=== PATIENT | male | born 1950 | race Caucasian/White ===

== ENCOUNTER 2016-08-06 16:25 | Emergency (ER) | payer OTHER ==
[~2016-08-06] VITALS: Ht 175.3 cm; Wt 106.8 kg
[2016-08-06 16:27] VITALS: BP 160/96; PULSE 96; RESP 20; O2SAT 94
[2016-08-06 17:28] LABS: APPEARANCE,URINE CLEAR (CLEAR,HAZY); COLOR,URINE YELLOW (YELLOW)
[2016-08-06 17:29] LABS: OCCULT BLOOD,URINE TRACE (NEGATIVE); PH,URINE 5.5 (5.0-8.0); UROBILINOGEN,URINE NORMAL (NORMAL)
[2016-08-06] MEDS ORDERED: _HYDROcodone/APAP 5-325 mg Tablet PO PRN (18:15)
[2016-08-06] MEDS ORDERED: _Ondansetron ODT 4 mg Tablet PO PRN (18:15)
--- NOTE | 2016-08-06 18:17 | ED.REPORT ---
HPI-Back Pain 40 and Over Date of Service Aug 06, 2016 ED Provider: Memo Hanson MD A 65 year old male with a history of hypertension and recent renal lithiasis presents to the ED complaining of right flank that began 2 days ago. Patient was diagnosed with renal colic in 03/2016 and reports similar symptoms today. Associated symptoms include nausea, vomiting and diaphoresis during the episodes of pain. His previous stones presented with intermittent pain and emesis but his current symptoms have been constant since onset 2 days ago. He denies any pain at this time and rates his worst pain as a 10/10. Patient currently takes Lisinopril and amlodipine. He denies any fever or chills. Nursing Notes Stated Complaint: RIGHT LOWER BACK PAIN Chief Complaint: Back Pain or Injury Nursing Notes Reviewed: Yes Allergies: Coded Allergies: No Known Allergies (Unverified , 08/06/16) Scheduled Tamsulosin (Flomax) 0.4 Mg Capsule 0.4 MG PO DAILY Scheduled PRN Hydrocodone-Acetaminophen 5-325 mg (Hydrocodone-Acetaminophen 5-325 mg) 1 Each Tablet 1-2 TABLET PO Q4H PRN PRN For Pain General Time Seen by MD: 18:05 Chief Complaint Flank pain right Hx Obtained From: Patient Arrived By: Walk-in Sudden in Onset?: No Onset Occurred: 2 days ago Symptom Duration: Constant Location: : Flank right Quality: Painful Radiation: : Does not radiate Severity: Current: No pain currently Severity: Maximum: Pain level 10 out of 10 Associated with: Reports: Nausea, Vomiting, Denies: Dysuria Pertinent Negative: Pt denies other symptoms Recent Healthcare: No recent doctor visit, No recent hospitalization Past Medical History Past Medical History Hypertension Renal colic Past Surgical History None reported. Smoking History Unknown if Ever Smoker Social History Other Social History: Good social support, , From out of town Ambulatory Status Independent Review of Systems Constitutional: Denies: Chills, Fever GI: Reports: Nausea, Vomiting Male: Reports Flank pain (R) Complete sys rev & neg: except as marked. Skin: Reports Diaphoresis Physical Exam Initial Vital Signs Vital Signs (First) Date Time Temp Pulse Resp B/P Pulse Ox O2 Delivery O2 Flow Rate FiO2 08/06/16 16:27 37. 96 20 160/96 94 Room Air Initial VS: Reviewed Head / Eyes: Atraumatic, Normocephalic, PERRL Neck: Supple, Non-tender, Full range of motion Extremities: Vascular intact, Neuro intact, No swelling, No tenderness Psychiatric: Mood/affect normal, Behavior normal, Normal thought content General/Constitutional: Awake, Alert, No acute distress, Well appearing, Well developed Respiratory / Chest: Atraumatic, Breath sounds NL, Breath sounds = bilat, No respiratory distress Cardiovascular: Heart rate NL, Regular rhythm, Heart sounds NL Abdomen: Atraumatic, Soft, Non-tender, No guarding, No rebound Back: Atraumatic, Inspection NL, Non-tender Neurologic: Oriented X3, Speech NL, No motor deficits, No sensory deficits Skin: Atraumatic, Color NL, No rash, Warm, Dry Interpretation & Diagnostics Lab Results Interpretation Result Diagram: 08/06/16 1720 Test 08/06/16 17:10 08/06/16 17:20 Urine Color Yellow (YELLOW) Urine Appearance Clear (CLEAR,HAZY) Urine pH 5.5 (5.0-8.0) Urine Specific [place] 1.025 (1.003-1.035) Urine Protein Tracemg/dL (NEG,TRACE) Urine Glucose (UA) Negativemg/dL (NEGATIVE) Urine Ketones Tracemg/dL (NEGATIVE) Urine Occult Blood Trace (NEGATIVE) Urine Nitrite Negative (NEGATIVE) Urine Bilirubin Negative (NEGATIVE) Urine Urobilinogen Normalmg/dL (NORMAL) Urine Leukocyte Esterase Negative (NEGATIVE) Urine RBC 0-2/hpf (0-2) Urine WBC 0-5/hpf (0-5) Urine Epithelial Cells None/hpf (NONE-MOD) Urine Crystals None seen (NONE SEEN) Urine Bacteria Few/hpf (NONE-FEW) Urine Hyaline Casts None/lpf (NONE) Urine Granular Casts None seen (NONE SEEN) Urine Waxy Casts None seen (NONE SEEN) Urine Red Blood Cell Casts None seen (NONE SEEN) Urine White Blood Cell Casts None seen (NONE SEEN) Urine Mucus None seen (None Seen) Urine Trichomonas None seen (NONE SEEN) Urine Yeast None (NONE SEEN) Urinalysis Comment None Urine Culture Reflexed Not indicated White Blood Count 13.2th/mm3 (3.8-10.1) Red Blood Count 4.62mil/mm3 (4.40-5.80) Hemoglobin 14.5g/dL (13.8-17.2) Hematocrit 43.5% (41.0-50.0) Mean Corpuscular Volume 94.2fL (81-100) Mean Corpuscular Hemoglobin 31.4pg (27.0-35.0) Mean Corpuscular Hemoglobin Concent 33.3% (32.0-37.0) Red Cell Distribution Width 13.1% (12.3-15.4) Platelet Count 284bil/L (150-400) Neutrophils (%) (Auto) 79.1% (40-74) Lymphocytes (%) (Auto) 9.0% (14-46) Monocytes (%) (Auto) 10.4% (4-12) Eosinophils (%) (Auto) 1.1% (0-5) Basophils (%) (Auto) 0.2% (0-3) Hold Purple Top Tube Received (Received) Hold Blue Top Tube Received (Received) Hold [place] Top Tube Received (Received) Hold [place] Top Tube Received (Received) General Lab Results Interp 2: Urinalysis NL except (Trace protein ) Re-Eval/Medical Decision Re-Evaluation/Progress : Time of Eval: 18:21 Patient Status: Condition improved Re-Evaluation/Progress Note: Pt is informed of his results and the plan to discharge with follow up. He reports that his symptoms have improved remarkably following 30 mg of IV Toradol Counseled Regarding: Diagnosis, Lab results, Need for follow-up, When/why to return to ED Discharge & Departure Impression: Primary Impression: Renal colic Disposition: Home Discharge Condition All VS Reviewed: Yes Condition: Improved Patient Instructions: Renal Colic (ED) Additional Instructions: Thank you for trusting us with your care this afternoon. Your emergency department results today including urinalysis and examination are reassuring at this time and I believe your symptoms are likely due to a kidney stone. The stone(s) should pass within the next few days, if they have not yet passed. Make sure to drink plenty of fluids for the next few days. Please take 800 mg of ibuprofen every 8 hours as directed. Continue to take Tamsulosin as prescribed. I recommend that you schedule a follow-up appointment with your primary care physician or [facility] administrator in the next 1-2 days for a recheck is symptoms do not improve. Use hydrocodone/APAP 5/325 1-2 tablets every 4 hours as needed for severe pain. Use ondansetron as needed for nausea. Please return to the emergency department for any new or worsening conditions including any worsening abdominal pain, high fevers, chills, nausea or uncontrollable vomiting. Referrals: OTHER,PHYSICIAN (PCP) Scribe Attestation Portions of this note were transcribed by Karena Cruz. I, Dr. Hanson personally performed the history, physical exam and medical decision-making; I reviewed and confirmed the accuracy of the information in the transcribed note. Signed by: Kayla Cisneros, 08/06/16 1830. Memo Hanson MD Aug 06, 2016 18:17 KARENA CRUZ Aug 06, 2016 18:18
[2016-08-06] MEDS ORDERED: HYDR-4003 PO (18:20)
[2016-08-06] MEDS ORDERED: TAMS0.4C98 PO (18:20)
[2016-08-06 18:30] LABS: BASOPHILS % (AUTO) 0.2 % (0-3); EOSINOPHILS % (AUTO) 1.1 % (0-5); MONOCYTES % (AUTO) 10.4 % (4-12); Mean Corpuscular Hemoglobin 31.4 pg (27.0-35.0); Mean Corpuscular Volume 94.2 fL (81-100); NEUTROPHILS % (AUTO) 79.1 % (40-74); Platelet Count 284 bil/L (150-400)
[2016-08-06 18:45] LABS: Magnesium 2.3 mg/dL (1.6-2.6)
[2016-08-06 18:57] VITALS: BP 136/77; PULSE 80; RESP 18; O2SAT 94
== END 2016-08-06 18:45 | disposition home or self-care (01) ==
LOC: SED 16:25
DX: N23 Unspecified renal colic (principal); I10 Essential (primary) hypertension
CPT/HCPCS: 36415; 80053; 81000; 83690; 83735; 85025; 96374; 99284; J1885